=== PATIENT | male | born 1980 | race Caucasian/White ===

== ENCOUNTER 2022-05-01 22:44 | Inpatient (IN) | payer SELFPAY ==
[~2022-05-01] VITALS: Ht 172.7 cm; Wt 80.0 kg
[~2022-05-01 22:44] MED LIST: BACTRIM DS1 TAB PO; CIPRO500 MG OR; LORTAB 7.5 PO; MOTRIN400 MG OR; SEPTRA DS1 TAB PO
[2022-05-01 23:25] VITALS: BP 95/63
[2022-05-01 23:26] VITALS: BP 89/60
[2022-05-01] MEDS ORDERED: LEVOTHYROXIN175 MC1 PO (23:48)
[2022-05-02] VITALS (7 sets, daily range): BP systolic 95–106; BP diastolic 53–66
--- NOTE | 2022-05-02 00:15 | NUR ---
IVF'S INFUSING. PT. ASLEEP AT PRESENT NO VOMITING AT THIS TIME. PARENTS AT BEDSIDE
[2022-05-02 00:20] LABS: HEMATOCRIT 48.7 % (39.0-50.0); HEMOGLOBIN 17.7 g/dl (14.0-18.0); IMMATURE GRANULOCYTES 0.6 % (0.0-5.0); MEAN CELL VOLUME 78.5 fL CALC (80.0-100.0); MEAN CORPUSCULAR HGB 28.5 pG CALC (26.0-32.0); MEAN CORPUSCULAR HGB CONC 36.3 g/dL CAL (32.0-36.0); NEUT# 6.02 thou/uL (1.82-7.42); RED BLOOD COUNT 6.2 mill/uL (4.70-6.10); RED CELL DISTRI WIDTH 12.4 % (11.5-15.5)
[2022-05-02 00:33] LABS: ALBUMIN 4.9 g/dL (3.2-5.0); TOTAL PROTEIN 8.6 g/dL (6.3-8.2)
[2022-05-02 00:38] LABS: BILIRUBIN, TOTAL 0.8 mg/dL (0.0-1.4); POTASSIUM 5.3 mmol/l (3.5-5.1)
--- NOTE | 2022-05-02 01:06 | NUR ---
URINE SPECIMEN OBTAINED AND SENT TO LAB.
--- NOTE | 2022-05-02 01:07 | NUR ---
PT. ASLEEP MOTHER AT BEDSIDE.
--- NOTE | 2022-05-02 01:15 | NUR ---
Reassessment of patient completed. No distress noted.ASLEEP. MOTHER AT BEDSIDE
[2022-05-02 01:20] LABS: URINE BLOOD DIPSTICK MODERATE (NEGATIVE); URINE COLOR YELLOW; URINE GLUCOSE - DIPSTICK NEGATIVE (NEGATIVE); URINE KETONE NEGATIVE (NEGATIVE); URINE PROTEIN - DIPSTICK 100 mg/dL (NEG-TRACE); URINE SPECIFIC GRAVITY >=1.030; URINE UROBILINOGEN - DIPSTICK 0.2 E.U./dL (0.2)
[2022-05-02 01:22] LABS: URINE BILIRUBIN - DIPSTICK MODERATE (NEGATIVE); URINE LEUK ESTERASE NEGATIVE (NEGATIVE); URINE NITRITE - DIPSTICK NEGATIVE (Negative)
--- NOTE | 2022-05-02 01:30 | NUR ---
TRANSPORTED VIA TO [id number]
--- NOTE | 2022-05-02 01:30 | NUR ---
REPORT TO TROY PERRY:ADMIT
[2022-05-02 01:36] LABS: URINE EPITHELIAL CELLS FEW EPI/hpf (0-FEW)
[2022-05-02 01:37] LABS: URINE BACTERIA MANY hpf
--- NOTE | 2022-05-02 02:37 | NUR ---
PT ARRIVED TO FLOOR FROM ED IN WHEELCHAIR, PT A/O X3, PT STATES NO PAIN, NO DISTRESS NOTED, ADMISSION AND ASSESSMENT DONE, BED IN LOW POSITION, CALL LIGHT IN REACH
--- NOTE | 2022-05-02 05:42 | NUR ---
PT IN BED ASLEEP, NO OVERNIGHT EVENTS, NO NAUSEA OR VOMMITING SINCE ARRIVING ON THE FLOOR, BED IN LOW POSITION, CALL LIGHT IN REACH
--- NOTE | 2022-05-02 07:00 | NUR ---
RECEIVE REPORT FROM TROY LINCOLN.
[2022-05-02 07:27] LABS: POTASSIUM 4.6 mmol/l (3.5-5.1)
[2022-05-02 07:33] LABS: CREATININE 7.3 mg/dL (0.7-1.3)
--- NOTE | 2022-05-02 08:00 | NUR ---
PATIENT ALERT AND ORIENTED X3. DOES NOT ACUTE RESPIRATORY DISTRESS AT THIS TIME. PATIENT IS EDUCATED ABOUD MEDICATIONS AND NURSING PLAN FOR TODAY. PATIENT REFER UNDERSTAND. SAFETY AND FALL PRECAUTIONS IN PLACE. CALL LIGHT WITHIN REACH.
[2022-05-02 10:20] LABS: POTASSIUM 4.7 mmol/l (3.5-5.1)
[2022-05-02 10:39] LABS: ALBUMIN 3.8 g/dL (3.2-5.0); CREATININE 7.3 mg/dL (0.7-1.3)
[2022-05-02 10:47] LABS: IMMATURE GRANULOCYTES 0.3 % (0.0-5.0); MEAN CELL VOLUME 80.2 fL CALC (80.0-100.0); MEAN CORPUSCULAR HGB 28.9 pG CALC (26.0-32.0); NEUT# 2.14 thou/uL (1.82-7.42); RED BLOOD COUNT 4.91 mill/uL (4.70-6.10); RED CELL DISTRI WIDTH 12.6 % (11.5-15.5)
[2022-05-02 10:49] LABS: HEMATOCRIT 39.4 % (39.0-50.0); HEMOGLOBIN 14.2 g/dl (14.0-18.0)
--- NOTE | 2022-05-02 16:30 | NUR ---
PATIENT RESTING IN BED. STABLE AT THIS TIME.
--- NOTE | 2022-05-02 20:00 | NUR ---
PATIENT RESTING IN BED AT THIS TIME-AWAKE ALERT AND ORIENTEDX3. NO COMPLAINTS OF NAUSEA OR DIARRHEA AT THIS TIME. IVF NS PATENT AND INFUSING VIA RIGHT FOREARM AT 150CC/HR. SITE REMAINS HEALTHY. PATIENT ON ISOLATION FOR COVID. O2 SAT IS 98% ON RA. DENIES ANY DIFFICULTY WITH URINATION-INSTRUCTED TO USE URINAL FOR ACCURATE I&O. LUNGS ARE CLEAR. ABD IS SOFT WITH ACTIVE BS. LAST BM WAS TODAY. SAFETY PRECAUTIONS REINFORCED. CALL LIGHT IN REACH. WILL CONT TO MONITOR.
--- NOTE | 2022-05-02 23:26 | NUR ---
PATIENT RESTING IN BED AT THIS TIME WITH NO COMPLAINTS. MEDICATED WITH HEPARIN SQ ORDERED. IVF PATENT AND INFUSING VIA LAC SITE AT 150CC/HR. CALL LIGHT IN REACH. WILL CONT TO MONITOR.
[2022-05-03 04:12] VITALS: BP 99/53
--- NOTE | 2022-05-03 04:14 | NUR ---
PATIENT RESTING IN BED-APPEARS SLEEPING AT THIS TIME. EYES ARE CLOSED AND RESPS ARE EVEN AND UNLBORED. IVF PATIENT AND INFUSING VIA RAC SITE AT 150CC/HR. NO NAUSEA OR VOMITTING TONIGHT. SAFETY PRECAUTIONS REINFORCED. CALL LIGHT IN REACH. WILL CONT TO MONITOR.
[2022-05-03 05:50] LABS: HEMATOCRIT 35.1 % (39.0-50.0); MEAN CELL VOLUME 84.2 fL CALC (80.0-100.0); MEAN CORPUSCULAR HGB CONC 34.5 g/dL CAL (32.0-36.0); NEUT# 1.14 thou/uL (1.82-7.42); RED BLOOD COUNT 4.17 mill/uL (4.70-6.10); RED CELL DISTRI WIDTH 12.9 % (11.5-15.5)
[2022-05-03 05:51] LABS: HEMOGLOBIN 12.1 g/dl (14.0-18.0)
[2022-05-03 06:24] LABS: ANION GAP 11 (6-22 (CALC)); BUN 31 mg/dL (9-20); BUN/CREATININE RATIO 22 (12-20 (CALC)); CARBON DIOXIDE 23 mmol/l (22-30); CHLORIDE 108 mmol/l (95-108); CREATININE 1.4 mg/dL (0.7-1.3); GFR FOR AFR.AMER. > 60 ML/MIN (>=60 (CALC)); GFR OTHER RACES 56 ML/MIN (>=60 (CALC)); MAGNESIUM 2.2 mg/dL (1.6-2.3); POTASSIUM 5.1 mmol/l (3.5-5.1); SODIUM 137 mmol/l (137-146)
[2022-05-03 06:27] VITALS: BP 90/53
--- NOTE | 2022-05-03 07:00 | NUR ---
RECEIVE REPORT FROM ADRI LINCOLN.
--- NOTE | 2022-05-03 08:00 | NUR ---
PATIENT ALERT AND ORIENTED X3. DOES NOT RESPIRATORY DISTRESS AT THIS TIME. VITAL SIGNS STABLE AT THIS TIME. HEAD-TO TOE ASSESSMENT COMPLETE. PT IS EDUCATED ABOUD MEDICATIONS AND NURSING PLAN FOR TODAY. HE REFER UNDERSTAND. SAFETY AND FALL PRECAUTIONS IN PLACE. CALL LIGHT WITHIN REACH.
--- NOTE | 2022-05-03 12:41 | NUR ---
PATIENT RESTING IN BED. STABLE AT THIS TIME.
--- NOTE | 2022-05-03 14:10 | NUR ---
PATIENT IS DISCHARGED AT HOME STABLE AT THIS TIME. PT IS EDUCATED ABOUD MEDICATIONS AND FOLLOW UP. PT REFER UNDERSTAND.
== END 2022-05-03 14:06 | disposition home or self-care (01) | DRG 682 ==
LOC: ED 22:44 → MS2 05-02 01:21
PROVIDERS: Family Medicine; Nurse Practitioner; ADMIT Internal Medicine; ATTEND Internal Medicine
DX: N17.9 Acute kidney failure, unspecified (principal); U07.1 COVID-19; E87.1 Hypo-osmolality and hyponatremia; E86.0 Dehydration; R11.2 Nausea with vomiting, unspecified; R19.7 Diarrhea, unspecified; E03.9 Hypothyroidism, unspecified